=== PATIENT | female | born 1995 | race African-American/Black ===

== ENCOUNTER 2017-06-18 22:52 | Emergency (ER) | payer MEDICARE, OTHER ==
[~2017-06-18 22:52] MED LIST: FLUP1INJ IM; QUET1TAB8 PO; QUET1TAB9 PO
[2017-06-18 22:57] VITALS: BP 138/65; PULSE 116; RESP 18; TEMP 100.1; O2SAT 97
--- NOTE | 2017-06-19 01:07 | PD ---
HPI Chief Complaint: Cold / Flu Symptoms Time Seen by Provider: 01:04 Travel History International Travel<30 days: No Contact w/Intl Traveler<30days: No Traveled to known affect area: No History of Present Illness HPI Patient comes in complaining of sore throat 3 days. Patient denies anything making it better, but has tried [id number] lozenges as well as drinking hot tea. Denies any radiation of pain. Pain is worse with coughing or drinking cold fluids. Denies any fevers, nausea, vomiting, shortness of breath , fevers, loss change in bowel or bladder, abdominal pain, back pain, neck pain , , chest pain, or headaches. Denies any known sick contacts. Describes pain as a itchy burning pain without radiation. PFSH Past Medical History ADD: Yes ADHD: No Bipolar Disorder: Yes Depression: Yes Cancer: No Cardiovascular Problems: No Developmental Delay: No Diabetes: No Diminished Hearing: No Headaches: Yes Psychiatric: Yes Immunizations Current: Yes Migraines: No Schizophrenia: Yes Seizures: No Thyroid Disease: No Ulcer: No ?: Not LMP: 06/15/17 : 0 Past Surgical History Surgical History: No Previous Surgery Other Surgery: No Social History Alcohol Use: No Tobacco Use: Yes (1 PPD ) Substance Use: No (Hx:Dope, marijuanna last use last year) Allergies-Medications (Allergen,Severity, Reaction): Coded Allergies: Penicillin (Verified Allergy, Severe, 10/15/16) Hydrogen Peroxide (Verified Allergy, Unknown, 10/15/16) Seafood (Verified Allergy, Unknown, 10/15/16) *MDRO Multi-Drug Resistant Organism (Unverified Adverse Reaction, Unknown , 10/15/16) MRSA (buttock abscess) - 01/30/15 Reported Meds & Prescriptions Reported Meds & Active Scripts Active Reported Quetiapine (Quetiapine Fumarate) 200 Mg Tab 200 Mg PO BID Quetiapine (Quetiapine Fumarate) 100 Mg Tab 100 Mg PO DAILY Fluphenazine Decanoate Inj (Fluphenazine Decanoate) 125 Mg/5 Ml Inj 25 Mg IM Q21D Review of Systems Except as stated in HPI: all other systems reviewed are Neg Physical Exam Narrative GENERAL: Well-developed, overly nourished, in no acute distress, and non-ill appearing. SKIN: Focused skin assessment warm and dry. HEAD: Atraumatic. Normocephalic. EYES: Pupils equal and round. EOMI. No scleral icterus. No injection or drainage. ENT: No nasal bleeding or discharge. Mucous membranes pink and moist. Tympanic membranes pearly barone bilaterally in for suture by cerumen. Posterior pharynx nonerythematous without exudate. Uvula is midline. No tenderness to facial sinuses palpation. Patient swelling no saliva without difficulty and there is no drooling. NECK: Trachea midline. No cervical lymphadenopathy. Supple. No nuclear rigidity. CARDIOVASCULAR: Regular rate and rhythm. No murmur appreciated. RESPIRATORY: No accessory muscle use. No respiratory distress. Clear to auscultation. Breath sounds equal bilaterally. MUSCULOSKELETAL: No obvious deformities. No clubbing. No cyanosis. No edema. Full range of motion. NEUROLOGICAL: Awake and alert. No obvious cranial nerve deficits. Motor grossly within normal limits. Normal speech. PSYCHIATRIC: Appropriate mood and affect; insight and judgment normal. Data Data Last Documented VS Vital Signs Date Time Temp Pulse Resp B/P Pulse Ox O2 Delivery O2 Flow Rate FiO2 06/18/17 22:57 100.1 116 18 138/65 97 Room Air Orders Group A Rapid Strep Screen (06/19/17 00:44) Strep Culture (Group A) (06/19/17 00:45) MDM Medical Decision Making Medical Screen Exam Complete: Yes Emergency Medical Condition: Yes Differential Diagnosis Strep pharyngitis, viral pharyngitis, allergic rhinitis, sinusitis, other Narrative Course Patient looks great, non-ill appearing. The patient is tolerating fluids and is well hydrated. Appears viral pharyngitis with viral symptom complex. No clinical evidence by history or evaluation to suspect meningitis and/or sepsis. There was no evidence to suggest peritonsillar abscess or retropharyngeal abscess. I discussed with the patient, diagnosis, plan of care and to follow up with the patients primary physician. The patient was instructed to return if the worsens in anyway, especially if not tolerating fluids, increased pain or swelling, difficulty swallowing or breathing, or as needed. The patient agreed with plan. Patient in no obvious distress upon re-evaluation. All pertinent laboratory result(s) discussed with patient. Any questions/concerns in reference to patient diagnosis/condition discussed and clarified prior to patient's discharge. Reinforced sheer importance of close follow up with patient's primary physician or primary care clinic. Instructed patient to return to ED immediately, if symptoms return/worsen. Pt showed understanding of above instructions. Further instructions and recommendations were detailed in discharge paperwork. Pt ambulated without difficulty out of ED at discharge. Diagnosis Primary Impression: Viral pharyngitis Patient Instructions: General Instructions, Pharyngitis (ED) Additional Instructions: Follow-up with your primary care physician in 2-3 days for reevaluation. Use [id number] Claritin or Zyrtec as needed for symptomatic relief. Use over- the-counter Tylenol and/or ibuprofen as needed for pain. Follow instructions on the packaging. Drink plenty of non-caffeinated and nonalcoholic fluids. Stop smoking. Return to the emergency department if symptoms get worse. Disposition: 01 DISCHARGE HOME Condition: Stable Keny [place] Jun 19, 2017 01:07
== END 2017-06-19 01:53 | disposition home or self-care (01) ==
LOC: NEPD 22:52
DX: J02.9 Acute pharyngitis, unspecified (principal); F31.9 Bipolar disorder, unspecified; F20.9 Schizophrenia, unspecified; F17.200 Nicotine dependence, unspecified, uncomplicated; Z79.899 Other long term (current) drug therapy; Z88.0 Allergy status to penicillin
CPT/HCPCS: 87081; 87880; 99283

== ENCOUNTER 2017-07-05 09:38 | Emergency (ER) | payer MEDICARE, OTHER ==
[2017-07-05 09:40] VITALS: BP 162/97; PULSE 129; RESP 17; TEMP 97.6; O2SAT 97
--- NOTE | 2017-07-05 09:59 | PD ---
HPI Chief Complaint: Psychiatric Symptoms Time Seen by Provider: 09:48 Travel History International Travel<30 days: No Contact w/Intl Traveler<30days: No Traveled to known affect area: No History of Present Illness HPI This is a 22-year-old female who has a history of psychiatric illness who presents to the emergency department with hallucinations. Her mother reports that all night she was up talking to someone who wasn't there. She says that she's been staring around the room responding to people that don't exist. She says she didn't sleep at all last night. She said if you saw her yesterday versus today you would notice a complete change in her. She says this has happened before. Recently Carroll Chilel changed her medication regimen from 2 pills to 1. The patient would like to see psychiatrist. [facility] Past Medical History ADD: Yes ADHD: No Bipolar Disorder: Yes Depression: Yes Cancer: No Cardiovascular Problems: No Developmental Delay: No Diabetes: No Diminished Hearing: No Headaches: Yes Psychiatric: Yes Immunizations Current: Yes Migraines: No Schizophrenia: Yes Seizures: No Thyroid Disease: No Ulcer: No : 0 Past Surgical History Other Surgery: No Social History Alcohol Use: No Tobacco Use: Yes (1 PPD ) Substance Use: No (Hx:Dope, marijuanna last use last year) Allergies-Medications (Allergen,Severity, Reaction): Coded Allergies: Penicillin (Verified Allergy, Severe, 07/05/17) Hydrogen Peroxide (Verified Allergy, Unknown, 07/05/17) Seafood (Verified Allergy, Unknown, 07/05/17) *MDRO Multi-Drug Resistant Organism (Unverified Adverse Reaction, Unknown , 07/05/17) MRSA (buttock abscess) - 01/30/15 Reported Meds & Prescriptions Reported Meds & Active Scripts Active Reported Quetiapine (Quetiapine Fumarate) 300 Mg Tab 300 Mg PO HS [Prolixin] 5 Mg PO BID Quetiapine (Quetiapine Fumarate) 200 Mg Tab 200 Mg PO BID Quetiapine (Quetiapine Fumarate) 100 Mg Tab 100 Mg PO DAILY Fluphenazine Decanoate Inj (Fluphenazine Decanoate) 125 Mg/5 Ml Inj 25 Mg IM Q21D Review of Systems Except as stated in HPI: all other systems reviewed are Neg Physical Exam Narrative GENERAL:Well appearing, no acute distress SKIN: Focused skin assessment warm and dry. HEAD: Atraumatic. Normocephalic. EYES: Pupils equal and round. No injection or drainage. ENT: Moist mucous membranes NECK: Trachea midline. CARDIOVASCULAR: Regular rate and rhythm. No murmur appreciated. RESPIRATORY: Clear to auscultation. Breath sounds equal bilaterally. GASTROINTESTINAL: Abdomen soft, non-tender, nondistended. MUSCULOSKELETAL: No obvious deformities. NEUROLOGICAL: Awake and alert. Moving all extremities. PSYCHIATRIC:Responding to internal stimuli, makes poor eye contact, flat affect Data Data Last Documented VS Vital Signs Date Time Temp Pulse Resp B/P Pulse Ox O2 Delivery O2 Flow Rate FiO2 07/05/17 14:22 100 20 135/81 100 Room Air 07/05/17 12:00 97.7 Orders Complete Blood Count With Diff (07/05/17 09:59) Basic Metabolic Panel (Bmp) (07/05/17 09:59) Drug Screen, Random Urine (07/05/17 09:59) Alcohol (Ethanol) (07/05/17 09:59) Psych Screen (07/05/17 11:10) Diet Regular Basic (07/05/17 Lunch) Labs Laboratory Tests Test 07/05/17 10:21 White Blood Count 9.4 TH/MM3 Red Blood Count 4.58 MIL/MM3 Hemoglobin 13.4 GM/DL Hematocrit 38.6 % Mean Corpuscular Volume 84.2 FL Mean Corpuscular Hemoglobin 29.3 PG Mean Corpuscular Hemoglobin 34.8 % Concent Red Cell Distribution Width 14.8 % Platelet Count 360 TH/MM3 Mean Platelet Volume 8.0 FL Neutrophils (%) (Auto) 72.3 % Lymphocytes (%) (Auto) 22.2 % Monocytes (%) (Auto) 4.9 % Eosinophils (%) (Auto) 0.2 % Basophils (%) (Auto) 0.4 % Neutrophils # (Auto) 6.8 TH/MM3 Lymphocytes # (Auto) 2.1 TH/MM3 Monocytes # (Auto) 0.5 TH/MM3 Eosinophils # (Auto) 0.0 TH/MM3 Basophils # (Auto) 0.0 TH/MM3 CBC Comment AUTO DIFF Differential Comment AUTO DIFF CONFIRMED Sodium Level 139 MEQ/L Potassium Level 3.6 MEQ/L Chloride Level 106 MEQ/L Carbon Dioxide Level 25.6 MEQ/L Anion Gap 7 MEQ/L Blood Urea Nitrogen 7 MG/DL Creatinine 0.75 MG/DL Estimat Glomerular Filtration 118 ML/MIN Rate Random Glucose 104 MG/DL Calcium Level 9.1 MG/DL Urine Opiates Screen NEG Urine Barbiturates Screen NEG Urine Amphetamines Screen NEG Urine Benzodiazepines Screen NEG Urine Cocaine Screen NEG Urine Cannabinoids Screen NEG Ethyl Alcohol Level LESS THAN 3 MG/DL MDM Medical Decision Making Medical Screen Exam Complete: Yes Emergency Medical Condition: Yes Interpretation(s) Labs are all reassuring Differential Diagnosis schizophrenia, schizoaffective disorder, adjustment reaction Narrative Course This is a 22-year-old female who has a history of psychiatric disease who presents to the emergency department with hallucinations. On exam she is responding to internal stimuli. She requires psychiatric evaluation. I don't think She has any active medical issues. Jael Storm MD Jul 05, 2017 09:59
[2017-07-05] MEDS ORDERED: QUET1TAB10 PO (10:15)
[2017-07-05] MEDS ORDERED: PROLIXIN PO (10:15)
[2017-07-05 10:44] LABS: AUTOMATED NEUTROPHIL # 6.8 TH/MM3 (1.8-7.7); BASOPHIL % 0.4 % (0.0-2.0); EOSINOPHIL % 0.2 % (0.0-4.0); HEMATOCRIT 38.6 % (35.0-46.0); LYMPH % 22.2 % (9.0-44.0); LYMPHOCYTE # 2.1 TH/MM3 (1.0-4.8); MEAN CELL VOLUME 84.2 FL (80.0-100.0); MEAN CORPUSCULAR HEMOGLOBIN 29.3 PG (27.0-34.0); MEAN CORPUSCULAR HGB CONC 34.8 % (32.0-36.0); MONO % 4.9 % (0.0-8.0); NEUT % 72.3 % (16.0-70.0); PLATELET COUNT 360 TH/MM3 (150-450); RED BLOOD COUNT 4.58 MIL/MM3 (4.00-5.30); RED CELL DISTRIBUTION WIDTH 14.8 % (11.6-17.2); WHITE BLOOD COUNT 9.4 TH/MM3 (4.0-11.0)
[2017-07-05 10:46] LABS: HEMO FLAGS AUTO DIFF
[2017-07-05 10:54] LABS: ANION GAP 7 MEQ/L (5-15); BICARBONATE 25.6 MEQ/L (21.0-32.0); BLOOD UREA NITROGEN 7 MG/DL (7-18); CHLORIDE 106 MEQ/L (98-107); GLOMERULAR FILTRATION RATE 118 ML/MIN (>89); POTASSIUM 3.6 MEQ/L (3.5-5.1); SODIUM (NA) 139 MEQ/L (136-145)
[2017-07-05 11:01] LABS: AMPHETAMINE, URINE NEG (NEG); BARBITURATES, URINE NEG (NEG); COCAINE, URINE NEG (NEG)
[2017-07-05 11:28] LABS: SCAN/DIFF AUTO DIFF CONFIRMED
[2017-07-05 12:00] VITALS: BP 137/84; PULSE 116; RESP 20; TEMP 97.7; O2SAT 98
[2017-07-05 14:22] VITALS: BP 135/81; PULSE 100; RESP 20; O2SAT 100
--- NOTE | 2017-07-05 16:43 | PD ---
History of Present Illness Chief Complaint: Psychiatric Symptoms Time Seen by Provider: 16:30 Travel History International Travel<30 Days: No Contact w/Intl Traveler<30days: No Known affected area: No Legal Status Legal Status: Voluntary History of Present Illness: History of Present Illness HPI This is a 22-year-old female with history of ADHd, ODD, schizophrenia, BPD who who presents to the emergency department with complaints of hallucinations that increased in frequency and intensity last night . Her mother reports that she was awake all night talking to someone who wasn't there. She says that she's been staring around the room responding to people that don't exist. She said if you saw her yesterday versus today you would notice a complete change in her. She says this has happened before. Recently Carroll Chilel changed her medication regimen from 2 pills to 1 pill at the request of the patient because she wants to get off the medication. EMR is reviewed. Extensive contact with psychiatry dating to 2005. The patient slept for several hours. The patient awakens and reports that she is no longer hearing the voices and that she feels better. her speech is clear and logical and does not appear internally stimulated. She denies any suicidal or homicidal ideation and is requesting to be discharged. She reports s he is medication compliant and that she will be contacting [facility] next week for medication evaluation. her next Prolixin injection is due on the 09 of July. PFS Past Medical History ADD: Yes ADHD: No Bipolar Disorder: Yes Depression: Yes Cancer: No Cardiovascular Problems: No Developmental Delay: No Diabetes: No Diminished Hearing: No Headaches: Yes Psychiatric: Yes Immunizations Current: Yes Migraines: No Schizophrenia: Yes Seizures: No Thyroid Disease: No Ulcer: No Tetanus Vaccination: Unknown Influenza Vaccination: No ?: Not LMP: last month : 0 Para: 0 Miscarriage: 0 : 0 Past Surgical History Surgical History: No Previous Surgery Other Surgery: No Psychiatric History Psychiatric History Hx Psychiatric Treatment: extensive historyu dating to . History of Inpatient Treatment: Yes Guns or firearms in home: No Social History Single. Lives with her mother. Hx Alcohol Use: No Hx Tobacco Use: Yes (1 PPD ) Hx Substance Use: Yes Substance Use Type: Nicotine/Cigarettes Other Substances Used: DENIES Hx of Substance Use Treatment: No Family Psychiatric History Negative Allergies-Medications (Allergen,Severity, Reaction): Coded Allergies: Penicillin (Verified Allergy, Severe, 07/05/17) Hydrogen Peroxide (Verified Allergy, Unknown, 07/05/17) Seafood (Verified Allergy, Unknown, 07/05/17) *MDRO Multi-Drug Resistant Organism (Unverified Adverse Reaction, Unknown , 07/05/17) MRSA (buttock abscess) - 01/30/15 Reported Meds & Prescriptions Reported Meds & Active Scripts Active Reported Quetiapine (Quetiapine Fumarate) 300 Mg Tab 300 Mg PO HS [Prolixin] 5 Mg PO BID Quetiapine (Quetiapine Fumarate) 200 Mg Tab 200 Mg PO BID Quetiapine (Quetiapine Fumarate) 100 Mg Tab 100 Mg PO DAILY Fluphenazine Decanoate Inj (Fluphenazine Decanoate) 125 Mg/5 Ml Inj 25 Mg IM Q21D Review of Systems Except as stated in HPI: all other systems reviewed are Neg Exam Alert: Yes [place]: Person (ox4) Mood: Calm Affect: Appropriate Speech: Clear, Logical Eye Contact: Normal Memory Intact: Comment (no impairmetn) Hallucinations: Other (deneis at present) Delusions: No Suicidal: Ideation (negative) Homicidal: Ideation (negative) Insight/Judgement Fair , not impaired. MDM Medical Decision Making Medical Record Reviewed: Yes Assessment/Plan This is a 22-year-old female with history of ADHd, ODD, schizophrenia, BPD who who presents to the emergency department with complaints of hallucinations that increased in frequency and intensity last night . Her mother reports that she was awake all night talking to someone who wasn't there. The patient after arriving to [facility] slept several hours. She at the time of this examination denies any hallucinations, no delusions and no paranoia. She is requesting discharge and she will follow up with [facility]. She is instructed to return to Ed if any changes or concerns. Does not meet BA criteria. Orders Complete Blood Count With Diff (07/05/17 09:59) Basic Metabolic Panel (Bmp) (07/05/17 09:59) Drug Screen, Random Urine (07/05/17 09:59) Alcohol (Ethanol) (07/05/17 09:59) Psych Screen (07/05/17 11:10) Diet Regular Basic (07/05/17 Lunch) Results Vital Signs Date Time Temp Pulse Resp B/P Pulse Ox O2 Delivery O2 Flow Rate FiO2 07/05/17 14:22 100 20 135/81 100 Room Air 07/05/17 12:00 97.7 116 20 137/84 98 Room Air 07/05/17 09:40 97.6 129 17 162/97 97 Laboratory Tests Test 07/05/17 10:21 White Blood Count 9.4 Red Blood Count 4.58 Hemoglobin 13.4 Hematocrit 38.6 Mean Corpuscular Volume 84.2 Mean Corpuscular Hemoglobin 29.3 Mean Corpuscular Hemoglobin 34.8 Concent Red Cell Distribution Width 14.8 Platelet Count 360 Mean Platelet Volume 8.0 Neutrophils (%) (Auto) 72.3 Lymphocytes (%) (Auto) 22.2 Monocytes (%) (Auto) 4.9 Eosinophils (%) (Auto) 0.2 Basophils (%) (Auto) 0.4 Neutrophils # (Auto) 6.8 Lymphocytes # (Auto) 2.1 Monocytes # (Auto) 0.5 Eosinophils # (Auto) 0.0 Basophils # (Auto) 0.0 CBC Comment AUTO DIFF Differential Comment AUTO DIFF CONFIRMED Sodium Level 139 Potassium Level 3.6 Chloride Level 106 Carbon Dioxide Level 25.6 Anion Gap 7 Blood Urea Nitrogen 7 Creatinine 0.75 Estimat Glomerular Filtration 118 Rate Random Glucose 104 Calcium Level 9.1 Urine Opiates Screen NEG Urine Barbiturates Screen NEG Urine Amphetamines Screen NEG Urine Benzodiazepines Screen NEG Urine Cocaine Screen NEG Urine Cannabinoids Screen NEG Ethyl Alcohol Level LESS THAN 3 Diagnosis Primary Impression: Schizophrenia Psychiatrically Cleared: Yes Med/ Other Pt Specific Info: No Change to Meds Disposition: 01 DISCHARGE HOME Condition: Stable Problem Qualifiers Primary Impression: Schizophrenia Qualified Code: F20.3 - Undifferentiated schizophrenia Frida Graham [facility] Jul 05, 2017 16:43
[2017-07-05 17:56] VITALS: BP 138/80; PULSE 107; RESP 18
[2017-07-05 18:14] VITALS: BP 138/80
[2017-07-06] MEDS ORDERED: FLUP5TAB PO (10:36)
== END 2017-07-05 18:38 | disposition home or self-care (01) ==
LOC: NEPD 09:38 → NEPJ 18:38
DX: F20.3 Undifferentiated schizophrenia (principal); F17.210 Nicotine dependence, cigarettes, uncomplicated
CPT/HCPCS: 80048; 80307; 85025; 99284

== ENCOUNTER 2018-03-07 13:53 | Emergency (ER) | payer MEDICARE, OTHER ==
[~2018-03-07] VITALS: Ht 167.6 cm; Wt 100.0 kg
[~2018-03-07 13:53] MED LIST changes: +FLUP5TAB PO; +QUET1TAB10 PO
[2018-03-07 14:09] VITALS: BP 120/81; PULSE 116; RESP 16; TEMP 97.3; O2SAT 96
--- NOTE | 2018-03-07 17:04 | PD ---
HPI Chief Complaint: Fall Time Seen by Provider: 16:54 Travel History International Travel<30 days: No Contact w/Intl Traveler<30days: No Traveled to known affect area: No History of Present Illness HPI 23-year-old female presents to the ED for evaluation of 5/10 left knee pain. Onset after the patient fell onto her knees a few days ago. Pain is exacerbated by weightbearing and touch. No alleviating factors reported. She has been ambulatory since the accident. She denies numbness, tingling, weakness , giving way, limitations to range of motion of the extremity. She also complains of pain in the left lower back and right posterior shoulder, onset at the same time. Worsened by certain movements. No alleviating factors reported. No treatment attempted at home. PFSH Past Medical History ADD: Yes ADHD: No Bipolar Disorder: Yes Depression: Yes Cancer: No Cardiovascular Problems: No Developmental Delay: No Diabetes: No Diminished Hearing: No Headaches: Yes Psychiatric: Yes Immunizations Current: Yes Migraines: No Schizophrenia: Yes Seizures: No Thyroid Disease: No Ulcer: No ?: Not LMP: [place] MARCH : 0 Para: 0 Miscarriage: 0 : 0 Past Surgical History Other Surgery: No Social History Alcohol Use: No Tobacco Use: Yes (1 PPD ) Substance Use: Yes Allergies-Medications (Allergen,Severity, Reaction): Coded Allergies: penicillin G (Unverified Allergy, Severe, 03/07/18) Fish Containing Products (Unverified Allergy, Unknown, 03/07/18) hydrogen peroxide (Unverified Allergy, Unknown, 03/07/18) *MDRO Multi-Drug Resistant Organism (Unverified Adverse Reaction, Unknown , 03/07/18) MRSA (buttock abscess) - 01/30/15 Reported Meds & Prescriptions Reported Meds & Active Scripts Active Ibuprofen 800 Mg Tab 800 Mg PO Q8H PRN Reported Fluphenazine (Fluphenazine HCl) 5 Mg Tab 5 Mg PO BID Quetiapine (Quetiapine Fumarate) 300 Mg Tab 300 Mg PO HS Quetiapine (Quetiapine Fumarate) 200 Mg Tab 200 Mg PO BID Quetiapine (Quetiapine Fumarate) 100 Mg Tab 100 Mg PO DAILY Fluphenazine Decanoate Inj (Fluphenazine Decanoate) 125 Mg/5 Ml Inj 25 Mg IM Q21D Review of Systems Except as stated in HPI: all other systems reviewed are Neg Physical Exam Narrative GENERAL: Well-nourished, well-developed obese -[place] female in no acute distress. SKIN: Focused skin assessment warm/dry. HEAD: Normocephalic. EYES: No scleral icterus. No injection or drainage. NECK: Supple, trachea midline. No JVD or lymphadenopathy. CARDIOVASCULAR: Regular rate and rhythm without murmurs, gallops, or rubs. RESPIRATORY: Breath sounds equal bilaterally. No accessory muscle use. GASTROINTESTINAL: Abdomen soft, non-tender, nondistended. MUSCULOSKELETAL: No cyanosis, or edema. FOCUSED LEFT LOWER EXTREMITY EXAM: 2+ DP pulse. Patient is able to flex beyond 90 and extend to 0. No tenderness to palpation of the joint lines, anterior or posterior knee. Negative varus/valgus testing. Negative anterior drawer testing. Neurovascularly intact distally. BACK: Nontender without obvious deformity. No CVA tenderness. Data Data Last Documented VS Vital Signs Date Time Temp Pulse Resp B/P (MAP) Pulse Ox O2 Delivery O2 Flow Rate FiO2 03/07/18 14:09 97.3 116 16 120/81 (94) 96 Orders Orders Ibuprofen (Motrin) (03/07/18 17:15) Ed Discharge Order (03/07/18 17:06) [facility] Medical Decision Making Medical Screen Exam Complete: Yes Emergency Medical Condition: Yes Differential Diagnosis Fall versus contusion versus musculoskeletal pain versus less likely fracture versus other Narrative Course 23-year-old female presents to the ED for evaluation of 5/10 left knee pain. Onset after the patient fell onto her knees a few days ago. She has been ambulatory since the accident. She denies numbness, tingling, weakness, giving way, limitations to range of motion of the extremity. She also complains of pain in the left lower back and right posterior shoulder. Vitals reviewed. On exam this is an obese -[place] female in no acute distress. The exam of the left lower extremity is reassuring. Patient retains full, active, painless ROM. I was unable to elicit any pain with palpation of the knee. She is neurovascularly intact. No CVA tenderness. No midline tenderness of the back. Patient's provided a short course of 800 mg ibuprofen, first dose administered in the ED. She is instructed to use RICE therapy, follow with the primary care provider. Patient and her mother are agreeable to the care plan. The patient is stable and discharged home. Diagnosis Primary Impression: Contusion of left knee Qualified Codes: S80.02XA - Contusion of left knee, initial encounter Additional Impression: Back pain Qualified Codes: M54.5 - Low back pain Referrals: Primary Care Physician Additional Instructions: Rest, ice, elevate the extremity. Apply ice no longer than 10-15 minutes per hour a few times a day. 800 mg ibuprofen up to 3 times a day as needed for pain. Return to normal, gentle activity as tolerated. No running, jumping activities for the next few weeks. Follow up with orthopedist or your primary care provider. Return to the ED for any urgent or emergent medical condition. Med/Other Pt SpecificInfo: Prescription(s) given Scripts Ibuprofen (Ibuprofen) 800 Mg Tab 800 MG PO Q8H Y for Pain/Inflammation, #15 TAB 0 Refills Prov: Cameron Calix MD 03/07/18 Disposition: 01 DISCHARGE HOME Condition: Stable Carli Sandoval Mar 07, 2018 17:04
[2018-03-07] MEDS ORDERED: IBUP1TAB7 PO (17:05)
[2018-03-07] MEDS ORDERED: IBUPROFEN 800 MG TAB PO ONE (17:15)
== END 2018-03-07 17:22 | disposition home or self-care (01) ==
LOC: NEPK 13:53
DX: S80.02XA Contusion of left knee, initial encounter (principal); M54.5 Low back pain; M25.511 Pain in right shoulder; W19.XXXA Unspecified fall, initial encounter; F31.9 Bipolar disorder, unspecified; F20.9 Schizophrenia, unspecified; F17.200 Nicotine dependence, unspecified, uncomplicated
CPT/HCPCS: 99283

== ENCOUNTER 2018-05-18 19:48 | Emergency (ER) | payer MEDICARE, OTHER ==
[~2018-05-18] VITALS: Ht 170.2 cm; Wt 140.0 kg
[~2018-05-18 19:48] MED LIST changes: +IBUP1TAB7 PO
[2018-05-18 20:07] VITALS: BP 140/68; PULSE 107; RESP 16; TEMP 99; O2SAT 97
--- NOTE | 2018-05-18 22:04 | PD ---
HPI Chief Complaint: Back/ Neck Pain or Injury Time Seen by Provider: 21:33 Travel History International Travel<30 days: No Contact w/Intl Traveler<30days: No Traveled to known affect area: No History of Present Illness HPI 23-year-old female that presents to the ED for evaluation of neck pain. Per patient she attributes this pain to an injury that she had in March when she had a slip and fall at a store. She states that she has been having pain on her right side of her neck for the past couple days that has progressively gotten worse. She has not taken anything for this. She denies any new injury. No numbness, tingling, weakness. Pain is only when she moves her neck to the left side. She does have some allergies to some medications. She denies any back pain at this time. She denies any leg or arm pain. No fevers chills or sweats. No urinary or bowel movement issues. Per patient the pain is 7 out of 10. Allergies to other medications. PFSH Past Medical History ADD: Yes ADHD: No Bipolar Disorder: Yes Depression: Yes Cancer: No Cardiovascular Problems: No Developmental Delay: No Diabetes: No Diminished Hearing: No Headaches: Yes Psychiatric: Yes Immunizations Current: Yes Migraines: No Schizophrenia: Yes Seizures: No Thyroid Disease: No Ulcer: No : 0 Para: 0 Miscarriage: 0 : 0 Past Surgical History Other Surgery: No Social History Alcohol Use: No Tobacco Use: Yes (1 PPD ) Substance Use: Yes Allergies-Medications (Allergen,Severity, Reaction): Coded Allergies: penicillin G (Unverified Allergy, Severe, 05/18/18) Fish Containing Products (Unverified Allergy, Unknown, 05/18/18) hydrogen peroxide (Unverified Allergy, Unknown, 05/18/18) *MDRO Multi-Drug Resistant Organism (Unverified Adverse Reaction, Unknown , 05/18/18) MRSA (buttock abscess) - 01/30/15 Reported Meds & Prescriptions Reported Meds & Active Scripts Active Diclofenac Sodium DR (Diclofenac Sodium) 75 Mg Tabdr 75 Mg PO BID PRN Robaxin (Methocarbamol) 500 Mg Tab 500 Mg PO QID Ibuprofen 800 Mg Tab 800 Mg PO Q8H PRN Reported Fluphenazine (Fluphenazine HCl) 5 Mg Tab 5 Mg PO BID Quetiapine (Quetiapine Fumarate) 300 Mg Tab 300 Mg PO HS Quetiapine (Quetiapine Fumarate) 200 Mg Tab 200 Mg PO BID Quetiapine (Quetiapine Fumarate) 100 Mg Tab 100 Mg PO DAILY Fluphenazine Decanoate Inj (Fluphenazine Decanoate) 125 Mg/5 Ml Inj 25 Mg IM Q21D Review of Systems Except as stated in HPI: all other systems reviewed are Neg Physical Exam Narrative GENERAL: SKIN: Warm and dry. HEAD: Atraumatic. Normocephalic. EYES: Pupils equal and round. No scleral icterus. No injection or drainage. ENT: No nasal bleeding or discharge. Mucous membranes pink and moist. Tongue is midline. No uvula deviation. NECK: Trachea midline. No JVD. CARDIOVASCULAR: Regular rate and rhythm. No murmurs, S3, S4. RESPIRATORY: No accessory muscle use. Clear to auscultation. Breath sounds equal bilaterally. GASTROINTESTINAL: Abdomen soft, non-tender, nondistended. Hepatic and splenic margins not palpable. MUSCULOSKELETAL: Extremities without clubbing, cyanosis, or edema. No obvious deformities. Full range of motion of the upper and lower extremities bilaterally. No cervical, thoracic, lumbar spine tenderness to palpation. All the pain appears to be in the musculature on the right side of the neck. Especially with movement to the left side. Patient is able to do it however. 2 + pulses. neurovascularly intact. NEUROLOGICAL: Awake and alert. No obvious cranial nerve deficits. Motor grossly within normal limits. Five out of 5 muscle strength in the arms and legs. Normal speech. PSYCHIATRIC: Appropriate mood and affect; insight and judgment normal. Data Data Last Documented VS Vital Signs Date Time Temp Pulse Resp B/P (MAP) Pulse Ox O2 Delivery O2 Flow Rate FiO2 05/18/18 20:07 99.0 107 16 140/68 (92) [address] Cerv Spine W/O Contrast (05/18/18 ) Ed Discharge Order (05/18/18 22:53) MDM Medical Decision Making Medical Screen Exam Complete: Yes Emergency Medical Condition: Yes Medical Record Reviewed: Yes Interpretation(s) Last Impressions Cervical Spine CT 05/18/18 0000 Signed Impressions: CONCLUSION: 1. No acute findings. Differential Diagnosis Neck pain versus muscle strain versus muscle spasm versus fracture versus acute on chronic pain versus chronic pain Narrative Course 23-year-old female that presents to the ED for evaluation of neck pain. Patient was properly examined and was found to have signs and symptoms consistent appears to be muscular skeletal neck pain. Imaging ordered. Imaging showed no sign of acute disease. Patient was reassured. This appears to be cervical strain. At this time patient likely has a strain. We will give prescription for Robaxin and diclofenac sodium. Told to follow with PCP. See ED worsening symptoms. Ice or warm compresses. Diagnosis Primary Impression: Cervical strain, acute Qualified Codes: S16.1XXA - Strain of muscle, fascia and tendon at neck level , initial encounter Patient Instructions: General Instructions Additional Instructions: Take medications as prescribed. Follow-up with PCP. See ED for any worsening symptoms. Do not drink or drive while taking pain medication. Apply ice or heat as needed for pain Med/Other Pt SpecificInfo: Prescription(s) given Scripts Diclofenac Sodium (Diclofenac Sodium DR) 75 Mg Tabdr 75 MG PO BID Y for PAIN SCALE 1 TO 10, #20 TAB 0 Refills Prov: Adela Mclain MD 05/18/18 Methocarbamol (Robaxin) 500 Mg Tab 500 MG PO QID for Muscle Spasm, #14 TAB 0 Refills Prov: Adela cMlain MD 05/18/18 Disposition: 01 DISCHARGE HOME Condition: Stable Miguel Browning May 18, 2018 22:04
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
[2018-05-18] MEDS ORDERED: DICL75TA PO (22:53)
[2018-05-18] MEDS ORDERED: ROBA500T PO (22:53)
== END 2018-05-18 23:00 | disposition home or self-care (01) ==
LOC: NEPE 19:48
DX: S16.1XXA Strain of muscle, fascia and tendon at neck level, initial encounter (principal); F31.9 Bipolar disorder, unspecified; F20.9 Schizophrenia, unspecified; F17.210 Nicotine dependence, cigarettes, uncomplicated; W01.0XXA Fall on same level from slipping, tripping and stumbling without subsequent striking against object, initial encounter; Y92.89 Other specified places as the place of occurrence of the external cause; Z88.0 Allergy status to penicillin; Z86.14 Personal history of Methicillin resistant Staphylococcus aureus infection
CPT/HCPCS: 72125; 99283